=== PATIENT | male | born 1975 | race Caucasian/White ===

== ENCOUNTER 2020-08-08 03:11 | Emergency (ER) | payer SELFPAY ==
[2020-08-08 03:25] VITALS: BP 145/79; PULSE 81; RESP 15; TEMP 36.6; O2SAT 99; BMI 35.9
--- NOTE | 2020-08-08 04:11 | PC.NURSE ---
patient noted to leave without discharge instructions; patient stressed to Dr. Young that he is not SI/HI that he only came in due to not having a place to go and needing a ride home.
--- NOTE | 2020-08-08 22:00 | W.ED.PSYCH ---
HPI - Psych General: Chief Complaint: Psychiatric Symptoms Stated Complaint: Mental Health Time Seen by Provider: 08/08/20 04:08 History of Present Illness: HPI Narrative: 45-year-old male dropped off by local police. He has been in long term in [facility] for 23 days. His home is in [place]. He has no way back. He is very agitated about this. He denies suicidality or homicidality. He denies any medical illnesses. Onset (ago): hour(s) Duration: constant History of same: No Relieving factors: none Exacerbating factors: none Context: significant life stressor Associated psychiatric symptoms: depression Associated symptoms: Reports depression; Deny auditory hallucinations, visual hallucinations, delusions, homicidal ideation, suicidal ideation or racing thoughts Treatments prior to arrival: none Review of Systems Const: Denies: fever(s) or chills Eyes: Denies: change in vision Card: Denies: chest pain GI: Denies: abdominal pain, nausea, vomiting or diarrhea : Denies: flank pain or difficulty urinating Neuro: Denies: headache(s) Psych: Reports: depression; Denies: visual hallucinations, auditory hallucinations, suicidal ideation or homicidal ideation Physical Exam Const: GENERAL APPEARANCE: well developed ORIENTATION/CONSCIOUSNESS: Yes oriented to person, Yes oriented to place and Yes oriented to time HENMT: COMMON NORMALS: normocephalic, external ears normal and Normal external nose present HEAD & SCALP: normocephalic FACE & SINUS: normal facial exam NOSE: Normal external nose present and No nasal discharge present EXTERNAL EAR: Yes external ears normal Eye: COMMON NORMALS: Equal, round and reactive pupils present, EOMs intact bilaterally and conjunctivae normal EYELID: eyelids normal CONJUNCTIVA: Yes conjunctivae normal PUPIL: Yes Equal, round and reactive pupils present Neck/C-Spine: GENERAL: No tracheal deviation Chest: COMMONS NORMALS: normal inspection of the chest CHEST: No tenderness Resp: COMMON NORMALS: clear to auscultation bilaterally EFFORT & INSPECTION: No tachypneic, No respiratory distress, No retractions, No uses accessory muscles and No tracheal deviation AUSCULTATION: clear to auscultation bilaterally, no rhonchi, no wheezes and lung sounds not diminished Cardio: COMMON NORMALS: regular rate and regular rhythm RATE: regular rate RHYTHM: regular rhythm HEART SOUNDS: no murmurs PERIPHERAL PULSES: radial pulses present GI: INSPECTION: No abdominal distension AUSCULTATION: No Hyperactive bowel sounds present and No Hypoactive bowel sounds present PALPATION: No Guarding due to palpation present (GI) and No Rigid due to palpation PERCUSSION: no dullness to percussion and no tympanic to percussion Neuro: SENSORIUM/ORIENTATION: Yes oriented to person, Yes oriented to place and Yes oriented to time Psych: COMMON NORMALS: mental status grossly normal THOUGHT CONTENT: No delusions Skin: COMMON NORMALS: no rashes or lesions noted GENERAL SKIN EXAM: no rashes or lesions noted Course Vital Signs: Vital signs: Vital Signs Temperature 97.9 F 08/08/20 03:25 Pulse Rate 81 08/08/20 03:25 Respiratory Rate 15 08/08/20 03:25 Blood Pressure 145/79 08/08/20 03:25 Pulse Oximetry 99 08/08/20 03:25 MDM - Psych MDM Narrative: Medical decision making narrative: Patient agitated as he cannot get home, says he has no one to call to come get him. His car at home or in [facility]. He was offered a place to sleep tonight in the emergency department, and may be call someone if he thought someone to help in the morning. He was given soda, and offered food. He it was explained to him that we have no resources in the middle the night on Monday night to provide the patient a plan for getting home to [place]. He left prior to receiving his discharge instructions. Discharge Plan Discharge Patient Disposition: Home Clinical Impression: Agitation Discharge Orders: Discharge ED (Routine); Ordered 08/08/20 Ordered By: Casey Young Patient Instructions: Opioid Safety Coding Level of Care Code ED Washing Machine Striper for Trishag Fwd Exam Comprehensive
== END 2020-08-08 04:14 | disposition home or self-care (01) ==
PROVIDERS: Emergency Provider Emergency Medicine
DX: R45.1 Restlessness and agitation (principal)
CPT/HCPCS: 99281